=== PATIENT | female | born 1965 | race Caucasian/White ===

== ENCOUNTER 2016-06-09 07:47 | Emergency (ER) | payer MEDICAID, OTHER ==
[~2016-06-09] VITALS: Ht 177.8 cm; Wt 75.0 kg
[2016-06-09 07:48] VITALS: BP 145/87; PULSE 96; RESP 20; TEMP 97.7; O2SAT 98
--- NOTE | 2016-06-09 08:23 | PD ---
HPI Chief Complaint: Dizziness Time Seen by Provider: 08:11 Travel History International Travel<30 days: No Contact w/Intl Traveler<30days: No Traveled to known affect area: No History of Present Illness HPI 51-year-old female complains of dizziness, near syncope, shortness of breath. Patient states that she has not been sleeping well recently. Patient states that she has intermittent headache and neck pain and shortness of breath recently. Patient states that headache aching headache in the back of the head. Patient denies any visual change. Patient denies any recent head injury. Patient states that she has aching neck pain. Patient denies any chest pain. Patient states that she has intermittent shortness of breath. Patient denies any coughing congestion fever chills. Patient denies abdominal pain. Patient denies any nausea vomiting diarrhea. Patient denied dysuria or frequency. Patient denies any vaginal discharge or bleeding. Patient denies any focal weakness or numbness of extremity. Patient denies any illicit drug or alcohol abuse. Patient is not on any routine medications. Patient states that she had a near syncopal episode this morning while she was sitting in bed. Patient denies any history of seizure. PFSH Past Medical History Diminished Hearing: No Headaches: Yes Musculoskeletal: Yes (CHRONIC BACK/NECK PAIN ) Tetanus Vaccination: < 5 Years Influenza Vaccination: No ?: Not : 4 Para: 4 Miscarriage: 0 : 0 Past Surgical History Section: Yes (X1) Social History Alcohol Use: Yes (WINE/BEER OCC) Tobacco Use: No Substance Use: No Allergies-Medications (Allergen,Severity, Reaction): Coded Allergies: No Known Allergies (Unverified , 06/09/16) Reported Meds & Prescriptions Reported Meds & Active Scripts Active No Active Prescriptions or Reported Medications Review of Systems General / Constitutional: No: Fever Eyes: No: Visual changes HENT: Positive: Lightheadedness, No: Headaches Cardiovascular: No: Chest Pain or Discomfort Respiratory: No: Shortness of Breath Gastrointestinal: No: Abdominal Pain Genitourinary: No: Dysuria Musculoskeletal: No: Pain Skin: No Rash Neurologic: No: Weakness Psychiatric: No: Depression Endocrine: No: Polydipsia Hematologic/Lymphatic: No: Easy Bruising Physical Exam Narrative GENERAL: Well-nourished, well-developed patient. SKIN: Warm and dry. HEAD: Normocephalic. EYES: No scleral icterus. No injection or drainage. NECK: Supple, trachea midline. No JVD or lymphadenopathy. CARDIOVASCULAR: Regular rate and rhythm without murmurs, gallops, or rubs. RESPIRATORY: Breath sounds equal bilaterally. No accessory muscle use. GASTROINTESTINAL: Abdomen soft, non-tender, nondistended. MUSCULOSKELETAL: No cyanosis, or edema. BACK: Nontender without obvious deformity. No CVA tenderness. Neurologic exam: Patient's awake, alert oriented 3. No obvious focal neurological deficit. Data Data Last Documented VS Vital Signs Date Time Temp Pulse Resp B/P Pulse Ox O2 Delivery O2 Flow Rate FiO2 06/09/16 08:31 81 20 154/82 91 20 155/93 86 20 177/95 06/09/16 07:48 97.7 98 Room Air Orders Electrocardiogram (06/09/16 ) Complete Blood Count With Diff (06/09/16 08:16) Comprehensive Metabolic Panel (06/09/16 08:16) Troponin I (06/09/16 08:16) Urinalysis - C+S If Indicated (06/09/16 08:16) Thyroid Stimulating Hormone (06/09/16 08:16) Chest, Single Ap (06/09/16 08:16) Ct Brain W/O Iv Contrast(Rout) (06/09/16 08:16) Iv Access Insert/Monitor (06/09/16 08:16) Ecg Monitoring (06/09/16 08:16) Oximetry (06/09/16 08:16) Orthostatic Vital Signs (06/09/16 08:19) Labs Laboratory Tests Test 06/09/16 06/09/16 08:30 09:10 White Blood Count 7.7 TH/MM3 Red Blood Count 4.79 MIL/MM3 Hemoglobin 14.0 GM/DL Hematocrit 39.8 % Mean Corpuscular Volume 83.2 FL Mean Corpuscular Hemoglobin 29.3 PG Mean Corpuscular Hemoglobin 35.3 % Concent Red Cell Distribution Width 13.5 % Platelet Count 307 TH/MM3 Mean Platelet Volume 7.5 FL Neutrophils (%) (Auto) 56.7 % Lymphocytes (%) (Auto) 29.2 % Monocytes (%) (Auto) 8.2 % Eosinophils (%) (Auto) 5.6 % Basophils (%) (Auto) 0.3 % Neutrophils # (Auto) 4.4 TH/MM3 Lymphocytes # (Auto) 2.3 TH/MM3 Monocytes # (Auto) 0.6 TH/MM3 Eosinophils # (Auto) 0.4 TH/MM3 Basophils # (Auto) 0.0 TH/MM3 CBC Comment DIFF FINAL Differential Comment Sodium Level 139 MEQ/L Potassium Level 3.7 MEQ/L Chloride Level 103 MEQ/L Carbon Dioxide Level 29.6 MEQ/L Anion Gap 6 MEQ/L Blood Urea Nitrogen 15 MG/DL Creatinine 0.85 MG/DL Estimat Glomerular Filtration 70 ML/MIN Rate Random Glucose 77 MG/DL Calcium Level 9.3 MG/DL Total Bilirubin 0.3 MG/DL Aspartate Amino Transf 17 U/L (AST/SGOT) Alanine Aminotransferase 23 U/L (ALT/SGPT) Alkaline Phosphatase 90 U/L Troponin I LESS THAN 0.02 NG/ML Total Protein 8.6 GM/DL Albumin 3.7 GM/DL Thyroid Stimulating Hormone 2.290 uIU/ML 3rd Gen Urine Color YELLOW Urine Turbidity CLEAR Urine pH 5.5 Urine Specific [place] 1.020 Urine Protein TRACE mg/dL Urine Glucose (UA) NEG mg/dL Urine Ketones NEG mg/dL Urine Occult Blood TRACE Urine Nitrite NEG Urine Bilirubin NEG Urine Urobilinogen LESS THAN 2.0 MG/DL Urine Leukocyte Esterase TRACE Urine RBC 3 /hpf Urine WBC 1 /hpf Urine Squamous Epithelial 2 /hpf Cells Urine Mucus FEW /lpf Microscopic Urinalysis Comment CULT NOT INDICATED MDM Medical Decision Making Medical Screen Exam Complete: Yes Emergency Medical Condition: Yes Interpretation(s) Last Impressions Head CT 06/09/16 0816 Signed Impressions: Service Date/Time: Thursday, June 09, 2016 08:31 - CONCLUSION: Negative for acute process. Spencer Grossman MD FACR 10:10 AM. CBC within normal limit. CMP within normal limit. Cardiac enzymes are normal. UA is negative. Chest x-ray shows no acute consolidation. Differential Diagnosis Differential diagnosis including dizziness, vertigo, cephalgia, electrolyte abnormality, dehydration, cardiac arrhythmia. Narrative Course 51-year-old female with recurrent headache, neck pain, shortness of breath, and near syncopal episode this morning. Diagnosis Primary Impression: Lightheadedness Patient Instructions: General Instructions Additional Instructions: Follow-up with local physician. Return if worse. Med/Other Pt SpecificInfo: No Meds Exist/No RX given Scripts No Active Prescriptions or Reported Meds Disposition: 01 DISCHARGE HOME Condition: Edmar Cherry MD Jun 09, 2016 08:23
[2016-06-09 08:31] VITALS: BP_SYST 154; BP_SYST 155; BP_SYST 177; BP_DIAS 82; BP_DIAS 93; BP_DIAS 95; RESP 20
[2016-06-09 08:38] LABS: AUTOMATED NEUTROPHIL # 4.4 TH/MM3 (1.8-7.7); BASOPHIL % 0.3 % (0.0-2.0); EOSINOPHIL # 0.4 TH/MM3 (0-0.4); EOSINOPHIL % 5.6 % (0.0-4.0); HEMATOCRIT 39.8 % (35.0-46.0); HEMO FLAGS DIFF FINAL; LYMPH % 29.2 % (9.0-44.0); LYMPHOCYTE # 2.3 TH/MM3 (1.0-4.8); MEAN CELL VOLUME 83.2 FL (80.0-100.0); MEAN CORPUSCULAR HEMOGLOBIN 29.3 PG (27.0-34.0); MEAN CORPUSCULAR HGB CONC 35.3 % (32.0-36.0); MONO % 8.2 % (0.0-8.0); NEUT % 56.7 % (16.0-70.0); PLATELET COUNT 307 TH/MM3 (150-450); RED BLOOD COUNT 4.79 MIL/MM3 (4.00-5.30); RED CELL DISTRIBUTION WIDTH 13.5 % (11.6-17.2); WHITE BLOOD COUNT 7.7 TH/MM3 (4.0-11.0)
--- NOTE | 2016-06-09 08:47 | RADRPT ---
EXAM DATE/TIME: 06/09/2016 08:31 [facility] COMPARISON: No previous studies available for comparison. INDICATIONS : Dizziness, syncopal episode RADIATION DOSE: 36.96 CTDIvol (mGy) MEDICAL HISTORY : None SURGICAL HISTORY : None. ENCOUNTER: Initial ACUITY: 1 day PAIN SCALE: 0/10 LOCATION: cranial TECHNIQUE: Multiple contiguous axial images were obtained of the head. Using automated exposure control and adjustment of the mA and/or kV according to patient size, radiation dose was kept as low as reasonably achievable to obtain optimal diagnostic quality images. FINDINGS: CEREBRUM: The ventricles are normal for age. No evidence of midline shift, mass lesion, hemorrha ge or acute infarction. No extra-axial fluid collections are seen. POSTERIOR FOSSA: The cerebellum and brainstem are intact. The 4th ventricle is midline. The cer ebellopontine angle is unremarkable. EXTRACRANIAL: The visualized portion of the orbits is intact. SKULL: The calvaria is intact. No evidence of skull fracture. CONCLUSION: Negative for acute process. Spencer Grossman MD FACR on June 09, 2016 at 8:45 Board Certified Radiologist. This report was verified electronically.
[2016-06-09 09:00] LABS: ANION GAP 6 MEQ/L (5-15); AST (GOT) 17 U/L (15-37); BICARBONATE 29.6 MEQ/L (21.0-32.0); BLOOD UREA NITROGEN 15 MG/DL (7-18); CHLORIDE 103 MEQ/L (98-107); GLOMERULAR FILTRATION RATE 70 ML/MIN (>89); POTASSIUM 3.7 MEQ/L (3.5-5.1); SODIUM (NA) 139 MEQ/L (136-145)
[2016-06-09 09:09] LABS: ALKALINE PHOSPHATASE 90 U/L (45-117); ALT (GPT) 23 U/L (10-53); TOTAL BILIRUBIN ADULT 0.3 MG/DL (0.2-1.0)
[2016-06-09 09:26] LABS: BLOOD, URINE TRACE (NEG); COMMENT (UR) CULT NOT INDICATED; CULTURE IF INDICATED CULT NOT INDICATED; GLUCOSE,URINE NEG (NEG); KETONE, URINE NEG (NEG); MUCUS URINE FEW /lpf (OCC); NITRITE,URINE NEG (NEG); PH, URINE 5.5 (5.0-8.5); SQUAMOUS EPITHELIAL CELL URINE 2 /hpf (0-5); URINE COLOR YELLOW (YELLW/STRAW)
--- NOTE | 2016-06-09 10:08 | RADRPT ---
EXAM DATE/TIME: 06/09/2016 08:53 [facility] COMPARISON: No previous studies available for comparison. INDICATIONS : Syncope. MEDICAL HISTORY : None. SURGICAL HISTORY : None. ENCOUNTER: Initial ACUITY: 1 day PAIN SCORE: 0/10 LOCATION: chest FINDINGS: A single view of the chest demonstrates the lungs to be symmetrically aerated without evidence of mas s, infiltrate or effusion. The cardiomediastinal contours are unremarkable. Osseous structures are intact. CONCLUSION: No acute disease. Ralf Montalvo MD on June 09, 2016 at 10:06 Board Certified Radiologist. This report was verified electronically.
[2016-06-09 10:20] VITALS: BP 142/82; PULSE 81; RESP 20; O2SAT 98
--- NOTE | 2016-06-09 14:16 | EKG ---
Date Performed: 06/09/2016 Time Performed: 08:19:15 PTAGE: 51 years EKG: Sinus rhythm NORMAL ECG NO PREVIOUS TRACING DOCTOR: Horacio Bryan Interpretating Date/Time 06/09/2016 14:13:36
== END 2016-06-09 10:26 | disposition home or self-care (01) ==
LOC: NEPC 07:47
DX: R42 Dizziness and giddiness (principal)
CPT/HCPCS: 70450; 71010; 80053; 81001; 84443; 84484; 85025; 93005

== ENCOUNTER 2017-05-03 16:39 | Emergency (ER) | payer MEDICAID ==
[~2017-05-03] VITALS: Ht 177.8 cm; Wt 75.0 kg
[2017-05-03 16:40] VITALS: BP 183/100; PULSE 76; RESP 18; TEMP 98.1; O2SAT 100
[2017-05-03] MEDS ORDERED: VENTAER INH (19:11)
[2017-05-03] MEDS ORDERED: BENZ100 PO (19:11)
[2017-05-03] MEDS ORDERED: AZIT250T3 PO (19:11)
--- NOTE | 2017-05-03 19:12 | PD ---
HPI Chief Complaint: Cold / Flu Symptoms Time Seen by Provider: 18:59 Travel History International Travel<30 days: No Contact w/Intl Traveler<30days: No Traveled to known affect area: No History of Present Illness HPI 52-year-old female presents emergency Department with a nonproductive cough, congestion, and occasional clear rhinorrhea since April 05. Patient states she tried multiple [id number] medications to include Mucinex and nyquil and has not not had significant relief. Patient states she has been trying to drink plenty water and eat properly but she is unable to "shake this illness". 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 In addition, patient states that she has felt more tired than normal. Patient denies fever or chills. Denies nausea, vomiting or diarrhea. Denies chest pain or shortness of breath. Patient does state that she has a 'wheezy' sensation in her chest with coughing but denies pain. She is not followed up with a primary care physician for the symptoms. States that she has taken multiple medications previously but is not currently on any medications. PFSH Past Medical History Diminished Hearing: No Headaches: Yes Musculoskeletal: Yes (CHRONIC BACK/NECK PAIN ) : 4 Para: 4 Miscarriage: 0 : 0 Past Surgical History Section: Yes (X1) Social History Alcohol Use: Yes (WINE/BEER OCC) Tobacco Use: No Substance Use: No Allergies-Medications (Allergen,Severity, Reaction): Coded Allergies: No Known Allergies (Unverified Adverse Reaction, Unknown, 05/03/17) Reported Meds & Prescriptions Reported Meds & Active Scripts Active Tessalon Perles (Benzonatate) 100 Mg Cap 100 Mg PO TID PRN 5 Days Ventolin Hfa 18 GM Inh (Albuterol Sulfate) 90 Mcg/Act Aer 2 Puff INH Q6H PRN Azithromycin 250 Mg Tab 250 Mg PO DIRECTED Take 2 tabs (500 mg) on day 1 then 1 tab daily x 4 days. Review of Systems Except as stated in HPI: all other systems reviewed are Neg Physical Exam Narrative GENERAL: Well-nourished in no apparent distress, frequent coughing SKIN: Focused skin assessment warm/dry. HEAD: Atraumatic. Normocephalic. EYES: Pupils equal and round. No scleral icterus. No injection or drainage. ENT: No nasal bleeding or discharge. Mucous membranes pink and moist. NECK: Trachea midline. No JVD. CARDIOVASCULAR: Regular rate and rhythm without murmurs, gallops, clicks or rubs. RESPIRATORY: Clear to auscultation. Breath sounds equal bilaterally. No wheezes , rales, or rhonchi heard. MUSCULOSKELETAL: No obvious deformities. No clubbing. No cyanosis. No edema. NEUROLOGICAL: Awake and alert. No obvious cranial nerve deficits. Motor grossly within normal limits. Normal speech. PSYCHIATRIC: Appropriate mood and affect; insight and judgment normal. Data Data Last Documented VS Vital Signs Date Time Temp Pulse Resp B/P (MAP) Pulse Ox O2 Delivery O2 Flow Rate FiO2 05/03/17 19:26 05/03/17 16:40 98.1 76 18 100 Room Air Orders Orders Ed Discharge Order (05/03/17 19:14) MDM Medical Decision Making Medical Screen Exam Complete: Yes Emergency Medical Condition: Yes Differential Diagnosis Upper respiratory infection, bronchitis, pneumonia Narrative Course 52-year-old female presents emergency Department with a nonproductive cough, congestion, and occasional clear rhinorrhea since April 05. Patient states she tried multiple [id number] medications to include Mucinex and nyquil and has not not had significant relief. Patient states she has been trying to drink plenty water and eat properly but she is unable to "shake this illness". 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 In addition, patient states that she has felt more tired than normal. Patient denies fever or chills. Denies nausea, vomiting or diarrhea. Denies chest pain or shortness of breath. Patient does state that she has a 'wheezy' sensation in her chest with coughing but denies pain. She is not followed up with a primary care physician for the symptoms. States that she has taken multiple medications previously but is not currently on any medications. Denies cardiac or pulmonary history. Vital signs stable. Physical exam findings consistent with an upper respiratory infection versus bronchitis. Because of the duration of her illness, I am willing to write a prescription for antibiotics. In addition, Antonietta Perles for nighttime coughing. I advised patient that she needs to cough as this is a mechanism to keep her lungs open and clear. I explained the importance of taking all medications as prescribed. Albuterol inhaler also prescribed as she states she occasionally feels wheezes in her chest. Patient has had allergy symptoms previously suspect it may be also allergy related. Patient to follow up with primary care physician within 2-3 days. Return to emergency for worsening or persistent symptoms. Diagnosis Primary Impression: Bronchitis Referrals: Primary Care Physician Additional Instructions: As discussed, consider taking Zyrtec, Claritin, or Jasmyne for possible allergic component. Take all medications as prescribed. If her symptoms persist or worsen return to the emergency department. Follow-up with her primary care physician within 2-3 days. Scripts Benzonatate (Tessalon Perles) 100 Mg Cap 100 MG PO TID Y for COUGH for 5 Days, CAP 0 Refills Prov: Tabatha Virgen 05/03/17 Albuterol 18 GM Inh (Ventolin Hfa 18 GM Inh) 90 Mcg/Act Aer 2 PUFF INH Q6H Y for SHORTNESS OF BREATH, #1 INHALER 0 Refills Prov: Tabatha Virgen 05/03/17 Azithromycin (Azithromycin) 250 Mg Tab 250 MG PO DIRECTED for Infection, #6 TAB 0 Refills Take 2 tabs (500 mg) on day 1 then 1 tab daily x 4 days. Prov: Tabatha Virgen 05/03/17 Disposition: 01 DISCHARGE HOME Condition: Stable Tabatha Virgen May 03, 2017 19:12
== END 2017-05-03 19:32 | disposition home or self-care (01) ==
LOC: NEPK 16:39
DX: J40 Bronchitis, not specified as acute or chronic (principal); Z79.899 Other long term (current) drug therapy
CPT/HCPCS: 99284